=== PATIENT | female | born 1985 | race Caucasian/White ===

== ENCOUNTER 2019-10-10 06:04 | Inpatient (IN) | payer BC ==
[~2019-10-10 06:04] MED LIST: Buffered Lidocaine 1% SYRIN* 1 ML/SYRINGE INTRADERM ONE; Lactated Ringers 1000 ML Bag* 1,000 ML IV SCH; Ondansetron INJ* 2 MG/ML VIAL IV ONE; Sodium Citrate/Citric Acid* 15 ML UDC PO ONE
--- OUTSIDE RECORDS SUMMARY | 2019-10-10 06:07 | XMS REPORT | Continuity of Care Document ---
:1985 External Reference #:[id number] Author Name Anjali Noriega MD Address [address] [place] [address] Problems Active Problems Provider Date Multigravida Elliot Alvarez CNM Onset: 04/22/2019 H/O: section Elliot Alvarez CNM Onset: 04/22/2019 Social History Type Date Description Comments Sex Unknown Tobacco Use Start: Unknown Never Smoked Cigarettes ETOH Use Occasionally consumes alcohol Recreational Drug Use Denies Drug Use Tobacco Use Start: Unknown Patient has never smoked Smoking Status Reviewed: 10/03/19 Patient has never smoked Exercise Type/Frequency Occasionally Seat Belt/Car Seat Always uses seat belt Allergies, Adverse Reactions, Alerts Active Allergies Reaction Severity Comments Date Sulfa 12/04/2018 Levaquin 12/04/2018 Medications Active Medications SIG Qnty Indications Ordering Provider Date Oseltamivir Phosphate 1 po daily for 10caps Anjali Noriega, 10/03/2019 10 days 75mg Capsules Pantoprazole Sodium 1 by mouth 90tabs Anjali Noriega, 07/14/2019 40mg daily take in Tablets DR am 1 po qd Unknown Vitamin D 1 by mouth Unknown 25mcg (1000 Ut) every day Tablets Lecithin 1 po qd Unknown 1200mg Capsules Medications Administered in Office Medication SIG Qnty Indications Ordering Provider Date PT SCRN Tbco Id as Non User Anjali Noriega MD 10/03/2019 Injection PT SCRN Tbco Id as Non User Anjali Noriega MD 12/04/2018 Injection Immunizations CPT Code Status Date Vaccine Lot # [id number] Given 08/12/2019 Tetnus, Diptheria Toxoids And Acellular Pertussis, XF3RY PT > 7Yrs Old [address] Given 06/23/2019 Influenza Vaccine Quadrivalent Preser/Antibiotic [id number] Free Im Use Vital Signs Date Vital Result Comment 03/31/2019 8:55am BP Systolic 106 mmHg BP Diastolic 64 mmHg Height 63 inches 5'3" Weight 181.00 lb BMI (Body Mass Index) 32.1 kg/m2 Last Menstrual Period 6424149 3 Parity 2 12/04/2018 2:46pm BP Systolic 118 mmHg BP Diastolic 70 mmHg Height 63 inches 5'3" Weight 171.00 lb BMI (Body Mass Index) 30.3 kg/m2 Last Menstrual Period 3094074 2 Parity 2 Results Test Acquired Date Facility Test Result H/L Range Note CBC Auto 10/08/2019 [facility] White Blood 10.0 10^3/uL Normal 3.5-10.8 [place] [address] Count [phone] Red Blood Count 3.48 10^6/uL Low 3.70-4.87 Hemoglobin 11.5 g/dL Low 12.0-16.0 Hematocrit 33 % Low 35-47 Mean Corpuscular Volume 94 fL Normal 80-97 Mean Corpuscular Hemoglobin 33 pg High 27-31 Mean Corpuscular HGB Conc 35 g/dL Normal 31-36 Red Cell Distribution Width 13 % Normal 10-15 Platelet Count 295 10^3/uL Normal 150-450 Mean Platelet Volume 7.8 fL Normal 7.4-10.4 Abs Neutrophils 7.4 10^3/uL Normal 1.5-7.7 Abs Lymphocytes 1.8 10^3/uL Normal 1.0-4.8 Abs Monocytes 0.8 10^3/uL Normal 0-0.8 Abs Eosinophils 0.0 10^3/uL Normal 0-0.6 Abs Basophils 0.0 10^3/uL Normal 0-0.2 Abs Nucleated RBC 0.0 10^3/uL Granulocyte % 73.9 % Lymphocyte % 17.6 % Monocyte % 7.9 % Eosinophil % 0.3 % Basophil % 0.3 % Nucleated Red Blood Cells % 0.0 Type And Screen 10/08/2019 [facility] Patient [place] [address] [phone] Antibody Screen NEGATIVE Laboratory test 09/19/2019 [facility] Genital For GRP SEE RESULT 1 finding KORIN Garza [address] B Strep Only BELOW [phone] Glucose 07/29/2019 [facility] GTT 3HR (SEE NOTE) 2 Tolerance 3HR K[place] Garza [address] Gestational Gestational [phone] Laboratory test 07/14/2019 [facility] Glucose 1 HR 141 mg/dL Normal 70-1 3 finding KORIN Garza [address] Post Prandial 60 [phone] CBC With No Diff 07/14/2019 [facility] White Blood 11.5 High 3.5- [place] [address] Count 10^3/uL 10.8 [phone] Red Blood Count 3.58 10^6/uL Low 3.70-4.87 Hemoglobin 11.3 g/dL Low 12.0-16.0 Hematocrit 34 % Low 35-47 Mean Corpuscular Volume 95 fL Normal 80-97 Mean Corpuscular Hemoglobin 32 pg High 27-31 Mean Corpuscular HGB Conc 33 g/dL Normal 31-36 Red Cell Distribution Width 13 % Normal 10-15 Platelet Count 291 10^3/uL Normal 150-450 Mean Platelet Volume 7.5 fL Normal 7.4-10.4 Afp,Screen 04/28/2019 [facility] Results Summary Normal risk Maternal [place] [address] [phone] Neural Tube Defect Estimate SEE BELOW 4 Collection Date 04/28/19 Maternal Date of 85 Calculated Age At XAVIER 34 years Maternal Weight 181 lbs Insulin Dependent Diabetes No Current Cigarette Smoking Stat non-smoker Patient Race non-Black Number of Fetuses 1 Ivf N o Prev Preg w/Neural Tube Defect N o Patient/Father of Baby Has NTD N o Initial Or Repeat Testing Initial testing Physician Phone Number [phone] XAVIER by LMP 10/16/19 GA On Collection By Dates SEE BELOW wk,d 5 GA Used In Risk Estimate Dates estimate Afp 28.1 ng/mL Afp MoM 0.98 MoM <2.50 Interpretation See Comment 6 Additional Comments See Comment 7 Recommended Follow Up None. General Test Information See Comment 8 GC/Chlamydia Dna 04/28/2019 [facility] Chlamydia [place] [address] trachomatis Dena [phone] Neisseria gonorrhoeae (GC) Dena Negative Negative Urine Drug 04/28/2019 [facility] Urine Amphetamine Negative ng/ mL 9 Comp 20 [place] [address] [phone] Urine Barbiturates Negative ng/mL 10 Urine Benzodiazepines Negative ng/mL 11 Urine Cocaine Negative ng/mL 12 Urine Phencyclidine Negative ng/mL Cutoff: 25 Urine Tetrahydrocannabinol Negative ng/mL Cutoff: 50 13 Creatinine, Urine 158.5 mg/dL Specific [place] 1.017 pH 6.1 Oxidants Negative 14 Adulterants Comment Normal Codeine, Ur Not Detected ng/mL Cutoff: 25 15 Evwpsik-3-hiyj-glucuronide, Ur Not Detected ng/mL 16 Morphine, Ur Not Detected ng/mL Cutoff: 25 17 Qqevrmxc-5-piwc-glucuronide, U Not Detected ng/mL 18 6-monoacetylmorphine, Ur Not Detected ng/mL Cutoff: 25 19 Hydrocodone, Ur Not Detected ng/mL Cutoff: 25 20 Norhydrocodone, Ur Not Detected ng/mL Cutoff: 25 21 Dihydrocodeine, Ur Not Detected ng/mL Cutoff: 25 22 Hydromorphone, Ur Not Detected ng/mL Cutoff: 25 23 Kjidmxglejiwa2cpzmkmcdcklzvya Not Detected ng/mL 24 Oxycodone, Ur Not Detected ng/mL Cutoff: 25 25 Noroxycodone, Ur Not Detected ng/mL Cutoff: 25 26 Oxymorphone, Ur Not Detected ng/mL Cutoff: 25 27 Evrlzmtmtjs-7-lbpr-glucuronide Not Detected ng/mL 28 Noroxymorphone, Ur Not Detected ng/mL Cutoff: 25 29 Fentanyl, Ur Not Detected ng/mL Cutoff: 2 30 Norfentanyl, Ur Not Detected ng/mL Cutoff: 2 31 Meperidine, Ur Not Detected ng/mL Cutoff: 25 32 Normeperidine, Ur Not Detected ng/mL Cutoff: 25 33 Naloxone, Ur Not Detected ng/mL Cutoff: 25 34 Rhlckstj-4-qktr-glucuronide, U Not Detected ng/mL 35 Methadone, Ur Not Detected ng/mL Cutoff: 25 36 Eddp, Ur Not Detected ng/mL Cutoff: 25 37 Propoxyphene, Ur Not Detected ng/mL Cutoff: 25 38 Norpropoxyphene, Ur Not Detected ng/mL Cutoff: 25 39 Tramadol, Ur Not Detected ng/mL Cutoff: 25 40 O-desmethyltramadol, Ur Not Detected ng/mL Cutoff: 25 41 Tapentadol, Ur Not Detected ng/mL Cutoff: 25 42 N-desmethyltapentadol, Ur Not Detected ng/mL Cutoff: 50 43 Aytlsehhtr-dnxt-ircfzkturvd, U Not Detected ng/mL 44 Buprenorphine, Ur Not Detected ng/mL Cutoff: 5 45 Norbuprenorphine, Ur Not Detected ng/mL Cutoff: 5 46 Norbuprenorphine glucuronide Not Detected ng/mL Cutoff: 20 47 Opioid Interpretation See Comment 48 1 SEE RESULT BELOW Name: KELSEY LINTON : [address]: Anjali Noriega MD Acct: [id number] Unit: [id number] AGE: 34 Location: [facility] Re09/19/19 SEX: F Status: REG REF SPEC: [id number] SHEY: 09/19/19-1506 [facility] DR: Anjali Noriega MD REQ: [id number] RECD: 09/22/19-4547 STATUS: COMP _ SOURCE: EL/VAG/RE SPDESC: ORDERED: Grp B Strp Scrn COMMENTS: [id number] QUERIES: Is Patient Penicillin Allergic? N Is patient penicillin allergic and/or sensitivities needed? N Provider Requisition # C77#[id number] Procedure Result Reported Site Group B Strep Culture Screen Final 09/24/19- 820 ML Group B Strep Screen Negative * ML - Main Lab . END OF REPORT DEPARTMENT OF PATHOLOGY, [address] [place] [address] Mark Hough M.D. Director [facility] # [id number] GLU Fast 77 Col: 07/29/19 0752 GLU 1HR 139 Col: 07/29/19 0852 GLU 2HR 117 Col: 07/29/19 0952 GLU 3HR 91 Col: 07/29/19 1052 GLU Interp Col: 07/29/19 0752 GTT normal ranges for obstetrics per the [employer] (ACOG).Based on 100 gm glucose load: Fasting <95 mg/dl 1hr <180 mg/dl 2hr <155 mg/dl 3hr <140 mg/dl 3 [id number] RESULT: 5 RESULT: ,4 6 RESULT: Screen negative for neural tube defects. 7 RESULT: Reviewed by Deshaun K. G. Grebe, M.D. 8 This screening provides an estimation of risk, not a diagnosis. Incorrect or incomplete information may significantly alter results. Results may be unreliable in twin pregnancies with a demise. Results are not available for pregnancies with triplets and higher-order multiples. A positive result occurs when the AFP MoM equals or exceeds 2.5. Screen results and family history influence individual risk. If there is a family history of a neural tube defect, chromosome abnormality, or other inherited condition, consider the option of a genetic consultation. For further information, please contact the maternal screening laboratory at . ADDITIONAL INFORMATION This test was developed and its performance characteristics determined by [facility] in a manner consistent with CLIA requirements. This test has not been cleared or approved by the U.S. Food and Drug Administration. Test Performed by: [place] [address] Bicycle Technician: Elder Rosas M.D. Ph.D.; CLIA# [id number] 9 REFERENCE VALUE Cutoff: 500 10 REFERENCE VALUE Cutoff: 200 11 REFERENCE VALUE Cutoff: 100 12 REFERENCE VALUE Cutoff: 150 13 ADDITIONAL INFORMATION This report is intended for use in clinical monitoring or management of patients. It is not intended for use in employment-related testing. Test Performed by: [facility] [email or web address] - [facility] [address] [place] [address] Bicycle Technician: Elder Rosas M.D. Ph.D.; CLIA# [id number] 14 REFERENCE VALUE Cutoff: 200 mg/L 15 Tylenol 3 16 Metabolite of codeine REFERENCE VALUE Cutoff: 100 17 Rukhsana Bello, MS Contin; Also a minor metabolite (10%) of codeine and can be seen in low concentrations (<2,000 ng/mL) with poppy seed ingestion. 18 Metabolite of morphine REFERENCE VALUE Cutoff: 100 19 Metabolite of heroin 20 Lortab, Gregory, Vicodin; Also a very minor metabolite of codeine and impurity (<1%) of oxycodone. 21 Metabolite of hydrocodone 22 Metabolite of hydrocodone 23 Dilaudid, Exalgo; Also a metabolite of hydrocodone and a minor (<5%) metabolite of morphine. 24 Metabolite of hydromorphone REFERENCE VALUE Cutoff: 100 25 Endocet, Percocet, Oxycontin 26 Metabolite of oxycodone 27 Numorphan, Opana; Also a metabolite of oxycodone. 28 Metabolite of oxymorphone REFERENCE VALUE Cutoff: 100 29 Metabolite of oxymorphone 30 Actiq, Duragesic, Fentora 31 Metabolite of fentanyl 32 Demerol 33 Metabolite of meperidine 34 Narcan 35 Metabolite of naloxone REFERENCE VALUE Cutoff: 100 36 Dolophine 37 Metabolite of methadone 38 Darvon, Darvocet 39 Metabolite of propoxyphene 40 Tradol, Ultram, Ultracet 41 Metabolite of tramadol 42 Nucynta 43 Metabolite of tapentadol 44 Metabolite of tapentadol REFERENCE VALUE Cutoff: 100 45 Buprenex, Suboxone 46 Metabolite of buprenorphine 47 Metabolite of buprenorphine 48 No opioids were detected. The absence of expected drug(s) and/or drug metabolite(s) may indicate non-compliance, altered pharmacokinetics, inappropriate timing of specimen collection relative to drug administration, diluted/adulterated urine, or limitations of testing. ADDITIONAL INFORMATION This test was developed and its performance characteristics determined by [facility] in a manner consistent with CLIA requirements. This test has not been cleared or approved by the U.S. Food and Drug Administration. Procedures Date Code Description Status 09/19/2019 80236 Echography Uterus Limited Completed 05/30/2019 30830 Echography Uterus Complete Completed Medical Devices Description No Information Available Encounters Type Date Location Provider Dx Diagnosis Office Visit 10/03/2019 [facility] Office Anjali Noriega, O34.211 Matern care for low 3:00p MD transverse scar from prev del Z01.818 Encounter for other preprocedural examination Assessments Date Code Description Provider 10/03/2019 O34.211 Maternal care for low transverse scar from Anjali Noriega MD previous delivery 10/03/2019 Z01.818 Encounter for other preprocedural Anjali Noriega MD examination 09/26/2019 O34.211 Maternal care for low transverse scar from Andrew Rice JR, DO previous delivery 09/19/2019 O34.211 Maternal care for low transverse scar from Anjali Noriega MD previous delivery 09/15/2019 O34.211 Maternal care for low transverse scar from Andrew Rice JR, DO previous delivery 08/27/2019 O34.211 Maternal care for low transverse scar from Anjali Noriega MD previous delivery 08/12/2019 Z23 Encounter for immunization Anjali Noriega MD 07/29/2019 Z36.9 Encounter for screening, Anjali Noriega MD unspecified 07/29/2019 O34.211 Maternal care for low transverse scar from Andrew Rice JR, DO previous delivery 07/29/2019 Z36.9 Encounter for screening, Laboratory unspecified 07/14/2019 Z36.9 Encounter for screening, Anjali Noriega MD unspecified 07/14/2019 Z36.9 Encounter for screening, Anjali Noriega MD unspecified 07/14/2019 Z36.9 Encounter for screening, Laboratory unspecified 06/23/2019 Z23 Encounter for immunization Kamryn Vuong MD 06/23/2019 O34.211 Maternal care for low transverse scar from Kamryn Vuong MD previous delivery 05/30/2019 Z36.3 Encounter for screening for Reji Whitley MD malformations 05/30/2019 O34.211 Maternal care for low transverse scar from Reji Whitley MD previous delivery 05/30/2019 Z36.3 Encounter for screening for Ultrasounds malformations 04/28/2019 Z34.82 Encounter for supervision of other normal Zachariah Rollins M.D. , second trimester Plan of Treatment Future Appointment(s):11/17/2019 11:30 am - Anjali Noriega MD at [facility]10/17/2019 11:00 am - Elliot Alvarez CNM at [facility]10/10/2019 7:45 am - Andrew Rice JR, DO [place] [facility] R010/10/2019 7:45 am - Anjali Noriega MD at [facility] R010/03/2019 - Anjali Noriega MDO34.211 Maternal care for low transverse scar from previous deliveryComments:Routine care delivered.Z01.818 Encounter for other preprocedural examinationComments: Reviewed with patient risk and benefits of repeat section. Pt accepts risk to include but not limited to infection, bleeding ,damage to internal organs, pain ,scarring ,need for further surgery. Consent form personally reviewed and signed with patient. Functional Status Description No Information Available Mental Status Description No Information Available Referrals Description No Information Available
[2019-10-10] MEDS ORDERED: ceFOXitin 2 GM IVPREMIX* 2 GM/50 ML BAG IVPB ONE (07:00)
[2019-10-10] MEDS ORDERED: Morphine PF AMP (0.5MG/ML)* 5 MG/10 ML AMP ONE (07:25)
[2019-10-10] MEDS ORDERED: fentaNYL* 50 MCG/ML 2 ML VIAL (100 MCG VIAL) ONE (07:26)
[2019-10-10] MEDS ORDERED: Bupivacaine-MPF SPINAL* 7.5 MG/ML - 2ML AMP ONE (07:29)
[2019-10-10] MEDS ORDERED: Phenylephrine 40 MCG/ML SYRINGE ONE (07:34)
[2019-10-10] MEDS ORDERED: Lidocaine 2% PF * 5 ML VIAL ONE (07:34)
[2019-10-10] MEDS ORDERED: OXYTOCIN* 10 UNITS/ML 1 ML VIAL ONE ×2 (08:10→08:36)
[2019-10-10] MEDS ORDERED: fentaNYL* 50 MCG/ML 2 ML VIAL (100 MCG VIAL) IV PRN (08:45)
[2019-10-10] MEDS ORDERED: Metoclopramide IV* 5 MG/ML 2 ML VIAL IV PRN ×2 (08:45→08:46)
[2019-10-10] MEDS ORDERED: Acetaminophen TAB* 325 MG PO PRN (08:45)
[2019-10-10] MEDS ORDERED: Naloxone* 0.4 MG/ML 1 ML VIAL IV PRN ×2 (08:45→08:46)
[2019-10-10] MEDS ORDERED: oxyCODONE TAB* 5 MG TAB PO PRN ×4 (08:45→09:14)
[2019-10-10] MEDS ORDERED: Naloxone* 2 MG in NS 0.9% 250 ML* 250 ML IV PRN (08:46)
[2019-10-10] MEDS ORDERED: Ondansetron INJ* 2 MG/ML VIAL IV PRN (08:46)
[2019-10-10] MEDS ORDERED: Nalbuphine* 10 MG/ML 1 ML VIAL IV PRN (08:46)
[2019-10-10] MEDS ORDERED: Ketorolac INJ* 30 MG/ML 1 ML VIAL ONE (08:48)
[2019-10-10] MEDS ORDERED: Ibuprofen TAB* 600 MG PO PRN (08:50)
[2019-10-10] MEDS ORDERED: Dibucaine 1% 28.35 GM TUBE PR PRN (09:14)
[2019-10-10] MEDS ORDERED: Glycerin ADULT SUPP PR PRN (09:14)
[2019-10-10] MEDS ORDERED: Witch Hazel PAD* JAR TOPICAL PRN (09:14)
[2019-10-10] MEDS ORDERED: Lactated Ringers 1000 ML Bag* 1,000 ML IV SCH (10:00)
[2019-10-10] MEDS ORDERED: Oxytocin in LR* 20 UNITS/1,000 ML BAG IVPB SCH (10:00)
[2019-10-10 12:22] LABS: Urine Benzodiazepine Screen None Detected (None Detect); Urine Opiates Screen None Detected (None Detect)
[2019-10-10] MEDS: Simethicone TAB* 80 MG TAB.CHEW PO SCH ×3 (13:00→21:24)
[2019-10-10] MEDS: Docusate CAP* 100 MG PO SCH ×2 (13:00→21:24)
[2019-10-10] MEDS: Ketorolac INJ* 30 MG/ML 1 ML VIAL IV PUSH PRN ×2 (15:09→21:24)
--- NOTE | 2019-10-10 15:35 | OP ---
DATE OF OPERATION: 10/10/19 - ROOM #118 ATE OF : 85 SURGEON: Anjali Noriega MD LOT WORKER: Dr. Andrew Rice. ANESTHESIOLOGIST: Dr. Masha Mcghee. ANESTHESIA: Spinal. PRE-OP DIAGNOSIS: Intrauterine 39 and 1/7th weeks, desires repeat section. POST-OP DIAGNOSIS: Intrauterine 39 and 1/7th weeks, desires repeat section, delivered. OPERATIVE PROCEDURE: Repeat low-transverse section. FLUIDS: 2300 cc of crystalloid. URINE OUTPUT: 100 cc of clear yellow urine. ESTIMATED BLOOD LOSS: 500 cc. FINDINGS: Vertex male infant, Apgars 9 at 1 minute and 9 at 5 minutes, weight was 8 pounds 10 ounces. Nuchal cord x2. No meconium. Placenta, three-vessel cord manually extracted intact. Some adhesions noted of the lower uterine segment and bladder, taken down sharply. Normal appearing tubes and ovaries bilaterally. COMPLICATIONS: None apparent. DISPOSITION: Stable to recovery room. DESCRIPTION OF PROCEDURE: The patient was placed in dorsal lithotomy position. The abdomen was prepped and draped in a sterile standard fashion. Anesthesia was tested to appropriate level. Monroe protocol was then carried out for correct procedure, position and patient. Incision was made to prior incision using a scalpel, this was carried down to the fascia. Fascia was scored in the midline and extended laterally and superiorly using Eden scissors. The fascia was sharply and bluntly from the rectus fascia, both superiorly and inferiorly, the peritoneum was then entered sharply. With Metzenbaum scissors, the peritoneal incision was extended bluntly. Bladder blade was inserted and then removed as there were some dense adhesions at the bladder to lower uterine segment which were taken down with sharp dissection. Bladder blade was then reinserted. Lower uterine segment was identified, tented up with an Allis, incised with a scalpel and this was carried laterally and superiorly using Band-Aid scissors. The fluid was noted to be clear. was delivered, OLLIE, nuchal cord was reduced x2. Anterior, then posterior shoulder delivered. Cord was allowed to pulse for 1 minute, baby was vigorous, pink and crying. Cord was then clamped, cut and then the was handed off to awaiting gelatin maker utility. Appropriate cord blood was then obtained. Placenta was then manually extracted. The uterus was exteriorized. Cavity was wiped clean of any membranes or placental tissue. Tubes and ovaries were noted to have a normal-appearance. The uterine incision itself was reapproximated using 0 Vicryl x2, first layer running locked, second layer running imbricated. Hemostasis was noted. Uterus was returned intraabdominally. Colic gutters were lavaged. Hemostasis was assured of the lower uterine segment. The peritoneum was then reapproximated using 3-0 Vicryl in a running fashion, starting inferiorly, working superiorly as the peritoneal edge on the bladder was less defined secondary to the adhesions. The prefascial area was visualized, hemostasis was assured and the fascia was then reapproximated using 0 Vicryl x2 in a running fashion. Subcu tissue was lavaged. Hemostasis assured and the subcutaneous space was reapproximated using 3-0 Vicryl in an interrupted fashion. The skin was then reapproximated using a 4-0 Monocryl in a subcuticular fashion. Mastisol and Steri's were applied. All sponge, instruments, and blade counts were correct throughout the case. The patient tolerated the procedure well and went to the recovery room in stable condition. [id number]/[facility] #: [id number] [facility]ree
[2019-10-11] MEDS: Acetaminophen TAB* 325 MG PO PRN ×4 (02:32→17:32)
[2019-10-11] MEDS: Ketorolac INJ* 30 MG/ML 1 ML VIAL IV PUSH PRN ×2 (03:29→09:48)
[2019-10-11 06:30] LABS: ABS Eosinophils 0.1 10^3/ul (0-0.6); ABS Lymphocytes 2.5 10^3/ul (1.0-4.8); Eosinophil % 0.9 %; Hematocrit 27 % (35-47); Hemoglobin 9.3 g/dL (12.0-16.0); Mean Corpuscular HGB Conc 34 g/dL (31-36); Mean Corpuscular Hemoglobin 32 pg (27-31); Mean Corpuscular Volume 95 fL (80-97); Mean Platelet Volume 7.5 fL (7.4-10.4); Nucleated Red Blood Cells % 0.1; Platelet Count 279 10^3/uL (150-450); Red Blood Count 2.89 10^6 /uL (3.70-4.87); Red Cell Distribution Width 14 % (10-15); White Blood Count 12.8 10^3/uL (3.5-10.8)
[2019-10-11] MEDS: Docusate CAP* 100 MG PO SCH ×3 (07:56→20:21)
[2019-10-11] MEDS: Simethicone TAB* 80 MG TAB.CHEW PO SCH ×4 (07:56→20:21)
[2019-10-11] MEDS: Ferrous Gluconate TAB* 324 MG TAB PO SCH ×2 (07:56→20:21)
[2019-10-11] MEDS: Ibuprofen TAB* 600 MG PO PRN ×2 (16:35→22:59)
[2019-10-12] MEDS: Acetaminophen TAB* 325 MG PO PRN ×2 (03:39→11:50)
[2019-10-12] MEDS: Ferrous Gluconate TAB* 324 MG TAB PO SCH (07:42)
[2019-10-12] MEDS: Ibuprofen TAB* 600 MG PO PRN ×2 (07:42→13:41)
[2019-10-12] MEDS: Simethicone TAB* 80 MG TAB.CHEW PO SCH ×2 (07:42→11:50)
[2019-10-12] MEDS: Docusate CAP* 100 MG PO SCH ×2 (07:42→13:41)
[2019-10-12 07:48] VITALS: BP 125/68
== END 2019-10-12 13:45 | disposition home or self-care (01) | DRG 540 ==
LOC: MCHOB 06:04
PROVIDERS: ADMIT Obstetrics & Gynecology; ATTEND Obstetrics & Gynecology
PROC: 10D00Z1 Extraction of Products of Conception, Low, Open Approach (ICD-10-PCS; principal; 2019-10-10 07:45)
DX: O34.211 Maternal care for low transverse scar from previous cesarean delivery (principal); O69.81X0 Labor and delivery complicated by cord around neck, without compression, not applicable or unspecified; Z3A.39 39 weeks gestation of pregnancy; Z37.0 Single live birth
CPT/HCPCS: 36415; 80307; 85025; A9270-GY; G0480; J0694; J1885; J2405; J2590; J3010